=== PATIENT | male | born 1975 | race African-American/Black ===

== ENCOUNTER 2016-12-21 13:33 | Emergency (ER) | payer SELFPAY ==
[~2016-12-21] VITALS: Ht 170.2 cm; Wt 77.0 kg
[2016-12-21 13:40] VITALS: BP 118/76
== END 2016-12-21 17:47 | disposition left against medical advice (07) ==
LOC: ER 15:25
DX: Z53.21 Procedure and treatment not carried out due to patient leaving prior to being seen by health care provider (principal)

== ENCOUNTER 2019-02-03 15:18 | Emergency (ER) | payer MEDICAID ==
[~2019-02-03] VITALS: Ht 167.6 cm; Wt 58.0 kg
[2019-02-03] MEDS ORDERED: ONDANSETRON HCL 4MG/2ML INJ IV STA (15:51)
[2019-02-03] MEDS ORDERED: MORPHINE SULFATE 4 MG/ML CPJ (NOT FOR IM USE) IV STA (15:51)
[2019-02-03] MEDS ORDERED: SODIUM CHLORIDE 0.9% 1,000 ML IV ONE (15:51)
[2019-02-03] MEDS ORDERED: DEXT 5%/0.45% NACL KCL 20MEQ/L 1,000 ML IV ONE (18:48)
[2019-02-03] MEDS ORDERED: MORPHINE SULFATE 10 MG/ML CPJ IV ONE (19:00)
[2019-02-03] MEDS ORDERED: ONDANSETRON HCL 4MG/2ML INJ IV ONE (19:00)
[2019-02-03 19:33] LABS: *AMPHETAMINES SCREEN URINE NEGATIVE (NEGATIVE); *BARBITURATES SCREEN URINE NEGATIVE (NEGATIVE); *BENZODIAZEPINES SCREEN URINE NEGATIVE (NEGATIVE); *COCAINE SCREEN URINE NEGATIVE (NEGATIVE)
[2019-02-03 19:34] LABS: CANNABINOID URINE SCREEN PRESUMTIVE POSITIVE (NEGATIVE); METHADONE URINE SCREEN NEGATIVE (NEGATIVE); OPIATES URINE SCREEN PRESUMTIVE POSITIVE (NEGATIVE); PHENCYCLIDINE URINE SCREEN NEGATIVE (NEGATIVE)
[2019-02-03 21:42] VITALS: BP 104/68
== END 2019-02-03 22:05 | disposition short-term general hospital (02) ==
LOC: ER 15:18
DX: S02.609A Fracture of mandible, unspecified, initial encounter for closed fracture (principal); Y08.89XA Assault by other specified means, initial encounter; Y93.89 Activity, other specified; Y92.89 Other specified places as the place of occurrence of the external cause; Y99.8 Other external cause status
CPT/HCPCS: 70450; 70486; 72125; 80305; 96374; 96375; 96376; 99291; J2270; J2405; J7030; Z7610

== ENCOUNTER 2020-05-22 04:29 | Emergency (ER) | payer MEDICAID ==
[~2020-05-22] VITALS: Ht 170.2 cm; Wt 55.0 kg
[2020-05-22 06:06] LABS: CLARITY URINE CLEAR (CLEAR); COLOR URINE YELLOW (YELLOW); KETONES URINE NEGATIVE (NEGATIVE); LEUKOCYTE ESTERASE URINE 2+ (NEGATIVE); NITRITE URINE NEGATIVE (NEGATIVE); OCCULT BLOOD URINE NEGATIVE (NEGATIVE); PH URINE 5.5 (4.5-8.0); PROTEIN URINE NEGATIVE (NEGATIVE); SPECIFIC GRAVITY URINE 1.017 (1.005-1.030); UROBILINOGEN URINE 0.2 E.U./dL (0.2-1.0)
[2020-05-22] MEDS ORDERED: KETOROLAC 30MG/ML VIAL IV ONE (06:30)
[2020-05-22] MEDS ORDERED: AZITHROMYCIN 500 MG TABLET PO ONE (06:30)
[2020-05-22] MEDS ORDERED: CEFTRIAXONE 1 G PREMIX 50 ML IV ONE (06:30)
[2020-05-22] MEDS ORDERED: SODIUM CHLORIDE 0.9% 1,000 ML IV ONE (06:30)
[2020-05-22 06:49] LABS: BASOPHILS % 0.4 % (0.0-2.0); EOSINOPHILS % 1.4 % (0.0-5.0); HEMATOCRIT. 39.7 % (42.0-52.0); HEMOGLOBIN. 13.8 g/dL (14.0-18.0); LYMPHOCYTES % 35.6 % (20.0-50.0); MEAN CORPUSCULAR HEMOGLOBIN 32.9 pg (28.0-32.0); MEAN CORPUSCULAR VOLUME 94.8 fL (80.0-94.0); MEAN PLATELET VOLUME 6.8 fl (7.4-10.4); MONOCYTES % 7.9 % (2.0-8.0); NEUTROPHILS % 54.7 % (40.0-76.0); PLATELET 360 x1000/uL (130-400); RED BLOOD CELL COUNT 4.19 mill/uL (4.7-6.1); RED CELL DISTRIBUTION WIDTH 12.9 % (11.6-14.6)
[2020-05-22 07:04] LABS: CHLORIDE 106 mEq/L (98-107)
[2020-05-22 07:05] LABS: PROTHROMBIN TIME 10.2 sec (9.6-11.0)
[2020-05-22 07:37] VITALS: BP 139/90
[2020-05-22] MEDS ORDERED: NITR100C MT (08:48)
[2020-05-22] MEDS ORDERED: IBUP-2029 MT (08:48)
== END 2020-05-22 09:15 | disposition home or self-care (01) ==
LOC: ER 04:29 → CANBEDREQ 12:05
DX: N50.812 Left testicular pain (principal); N45.1 Epididymitis; N39.0 Urinary tract infection, site not specified; F17.290 Nicotine dependence, other tobacco product, uncomplicated; F12.10 Cannabis abuse, uncomplicated; Z79.899 Other long term (current) drug therapy
CPT/HCPCS: 36415; 71045; 76870; 80053; 81003; 82962; 83605; 84145; 84484; 85025; 85610; 87040; 87086; 93005; 93976; 96365; 96375; 99285; J0696; J1885; J7030